=== PATIENT | female | born 1945 | race Caucasian/White ===

== ENCOUNTER 2019-02-24 14:13 | Emergency (ER) | payer MEDICARE ==
[~2019-02-24] VITALS: Ht 167.6 cm; Wt 81.3 kg
[2019-02-24] MEDS ORDERED: METO1TAB33 PO (14:29)
[2019-02-24] MEDS ORDERED: ASPI81TA85 PO (14:29)
[2019-02-24] MEDS ORDERED: ATOR1TAB19 PO (14:29)
[2019-02-24] MEDS ORDERED: LISI10TA4 PO (14:29)
[2019-02-24] MEDS ORDERED: GLUC500C37 PO (14:29)
[2019-02-24] MEDS ORDERED: CALC500C16 PO (14:29)
[2019-02-24] MEDS ORDERED: OMEP40CA2 PO (14:29)
[2019-02-24] MEDS ORDERED: MULTCAP PO (14:29)
[2019-02-24] MEDS ORDERED: HYDR12.55 PO (14:29)
[2019-02-24 14:57] LABS: BASO % 0.3 % (0.0-1.0); EOS # 0.1 10^3/uL (0.0-0.50); EOS % 0.5 % (0.0-3.0); HEMOGLOBIN 13.2 g/dl (12.0-15.5); LYMPH # 1.2 10^3/uL (1.5-4.5); LYMPH % 9.6 % (24.0-44.0); MEAN CORPUSCULAR HEMOGLOBIN 32.8 pg (27.0-33.0); MEAN CORPUSCULAR VOLUME 99.5 fl (80.0-96.0); MONO # 0.4 10^3/uL (0.0-0.8); MONO % 3.6 % (0.0-5.0); NEUTROPHILS # 10.4 10^3/uL (1.8-7.7); NEUTROPHILS % 85.4 % (36.0-66.0); PLATELET COUNT, AUTOMATED 232 10^3/uL (150-450); RED BLOOD COUNT 4.02 10^6/uL (4.00-5.40); WHITE BLOOD COUNT 12.1 10^3/uL (4.0-10.0)
[2019-02-24] MEDS ORDERED: MORPHINE 2 MG/ML 1ML SYRINGE (J2270) IV ONE (15:00)
[2019-02-24] MEDS ORDERED: GI COCKTAIL 50ML BTL(HYOSCYAMINE/MAALOX/LIDOCAINE VISCOUS)(1:3:1) PO ONE (15:00)
[2019-02-24] MEDS ORDERED: ONDANSETRON 4MG/2ML VIAL (J2405) IV ONE (15:00)
[2019-02-24 15:01] LABS: PARTIAL THROMBOPLASTIN TIME 26.4 SECONDS (25.0-38.4)
[2019-02-24 15:05] LABS: INR 1.06; PROTHROMBIN TIME 13.5 SECONDS (11.8-14.0)
[2019-02-24] MEDS ORDERED: ISOVUE-370 76% 100ML VIAL (Q9967) As Ordered ONE (15:11)
[2019-02-24 15:16] LABS: ALBUMIN 3.5 GM/DL (3.2-5.2); ALT/SGPT 29 U/L (12-78); AMYLASE 45 U/L (25-115); BILIRUBIN,DIRECT 0.1 MG/DL (0.0-0.2); BILIRUBIN,TOTAL 0.4 MG/DL (0.2-1.0); CK-MB VALUE MASS 3.2 NG/ML (<3.6); CPK CREATINE PHOSPHOKINASE 222 U/L (26-192); FREE T4 0.92 NG/DL (0.76-1.46); LIPASE 202 U/L (73-393); MB/CK RELATIVE INDEX 1.44 (< OR =4); TOTAL PROTEIN 6.6 GM/DL (6.4-8.2); TROPONIN I < 0.02 NG/ML (< 0.10)
--- NOTE | 2019-02-24 15:18 | REP ---
CHEST, PORTABLE: AP portable view of the chest is performed. There are no priors studies. There is mild cardiomegaly. There is calcification and tortuosity of the thoracic aorta. The mediastinal silhouette is unremarkable. There is pulmonary venous hypertension with mild bibasilar fibroatelectatic change. No consolidating infiltrate is seen. Electronically Signed by Dante Osorio MD 02/28/2019 05:37 P
--- NOTE | 2019-02-24 16:20 | REP ---
CT ANGIOGRAM CHEST: TECHNIQUE: Axial contrast enhanced images from the thoracic inlet to the upper abdomen using 100 mL Isovue 370 intravenous contrast material with multiplanar reformations. There is no CT evidence of pulmonary embolism. There is no evidence of thoracic aortic aneurysm or dissection. Heart is mildly enlarged. There is no pleural or pericardial effusion. There is no mediastinal, hilar, or chest wall lymphadenopathy. There is mild scattered interstitial fibrosis or edema is seen. There are degenerative changes of the spine. IMPRESSION: No CT evidence of pulmonary embolism or aortic dissection. Mild cardiomegaly. Mild scattered interstitial fibrosis or edema. Electronically Signed by Dante Osorio MD 02/28/2019 05:39 P
--- NOTE | 2019-02-24 16:31 | REP ---
CT ABDOMEN AND PELVIS WITH IV CONTRAST: TECHNIQUE: Axial contrast enhanced images from the lung bases to the pubic symphysis using 100 mL Isovue 370 intravenous contrast material with multiplanar reformations. The gallbladder is moderately distended. The wall appears edematous. This raises the possibility of cholecystitis. There is no definite biliary dilatation. The liver demonstrates possible diffuse fatty infiltration. Liver appears mildly enlarged with a length of 18 to 19 cm. The spleen is not enlarged with no definite intrinsic abnormality. The adrenals and pancreas are unremarkable. There appear to be parapelvic cysts in each kidney. There is no abdominal aortic aneurysm or dissection. There is no adenopathy. There is no free air or free fluid. There is no bowel wall thickening. There is no evidence of appendicitis. I see no pelvic mass. The patient has had a hysterectomy. Urinary bladder is mildly distended and grossly unremarkable. There is sigmoid diverticulosis without acute diverticulitis. IMPRESSION: Distended gallbladder with apparent gallbladder wall edema, suspect cholecystitis. No definite biliary dilatation. No evidence of appendicitis. There is sigmoid diverticulosis without acute diverticulitis. Electronically Signed by Dante Osorio MD 02/28/2019 05:40 P
[2019-02-24 18:15] VITALS: BP 149/82
--- NOTE | 2019-02-24 18:24 | REPVR ---
EXAM: US Abdomen Limited, Right Upper Quadrant EXAM DATE/TIME: 02/24/2019 5:59 PM CLINICAL HISTORY: 73 years old, female; Abdominal pain; Epigastric; Additional info: Abdl pain TECHNIQUE: Imaging protocol: Real-time ultrasound of the abdomen with image documentation. Examination was focused on the right upper quadrant. COMPARISON: CT ABD/PEL W/IV CONTRAST ONLY 02/24/2019 3:14 PM FINDINGS: Pancreas is sonographically normal. Liver is homogeneous in echotexture, with no focal lesion. Gallbladder demonstrates no calcified intraluminal stone. Gallbladder wall shows irregular thickening up to 6 mm. Common bile duct measures 4 mm in diameter. Right kidney measures 11.1 cm in long axis. Right kidney demonstrates cortical thinning and increased echo texture with minimal obstructive change or stone. No free fluid. IMPRESSION: Irregular gallbladder wall thickening without duct dilatation or stone. Findings are equivocal for cholecystitis Medical renal disease changes of the right kidney without obstruction. Electronically signed by: Keon Santacruz On 02/24/2019 18:23:55 PM
[2019-02-24] MEDS ORDERED: FLAG500T PO (18:40)
[2019-02-24] MEDS ORDERED: NORC1TAB7 PO (18:40)
[2019-02-24] MEDS ORDERED: CIPR-249 PO (18:40)
[2019-02-24 18:41] LABS: CK-MB VALUE MASS 2.8 NG/ML (<3.6); CPK CREATINE PHOSPHOKINASE 194 U/L (26-192); MB/CK RELATIVE INDEX 1.44 (< OR =4); TROPONIN I < 0.02 NG/ML (< 0.10)
[2019-02-24] MEDS ORDERED: ZOFR4TAB16 PO (18:43)
[2019-02-24] MEDS ORDERED: CIPROFLOXACIN 500 MG TAB PO ONE (18:45)
[2019-02-24] MEDS ORDERED: metroNIDAZOLE (FLAGYL) 500 MG TAB PO ONE (18:45)
--- NOTE | 2019-02-25 09:34 | ECGEPIP ---
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
== END 2019-02-24 19:11 | disposition home or self-care (01) ==
LOC: EDBD 14:13 → M ED 14:13
DX: K81.9 Cholecystitis, unspecified (principal); I10 Essential (primary) hypertension; E78.9 Disorder of lipoprotein metabolism, unspecified; Z88.8 Allergy status to other drugs, medicaments and biological substances; Z79.899 Other long term (current) drug therapy; Z79.82 Long term (current) use of aspirin
CPT/HCPCS: 36415; 71045; 71275; 74177; 76705; 80047; 80076; 81001; 82150; 82550; 82553; 83605; 83690; 84439; 84443; 84484; 85025; 85610; 85730; 86850; 86900; 86901; 87040; 93005; 93041; 96374; 96375; 99285; J2270; J2405; Q9967